=== PATIENT | female | born 1950 | race Caucasian/White ===

== ENCOUNTER 2020-10-10 11:26 | Inpatient (IN) ==
[2020-10-10] MEDS ORDERED: Nitroglycerin 0.4 MG TAB.SUBL SL PRN (13:07)
[2020-10-10] MEDS ORDERED: Cefuroxime PO 250 MG TABLET PO SCH (13:15)
[2020-10-10] MEDS: *HR* OxyCODONE/APAP 5/325 TABLET PO PRN ×2 (16:44→21:15)
[2020-10-10] MEDS: Cefuroxime PO 250 MG TABLET PO SCH (21:14)
[2020-10-10] MEDS: Mirtazapine 15 MG TABLET PO SCH (21:15)
[2020-10-10] MEDS: Gabapentin 300 MG CAPSULE PO SCH (21:15)
[2020-10-10] MEDS: ALPRAZolam 0.25 MG TABLET PO PRN (21:21)
[2020-10-11] MEDS: *HR* OxyCODONE/APAP 5/325 TABLET PO PRN ×3 (03:39→12:47)
[2020-10-11] MEDS ORDERED: Ketorolac 15 MG/ML VIAL IVP ONE (06:08)
[2020-10-11] MEDS: Aspirin Enteric Coated 325 MG Tablet PO SCH (08:06)
[2020-10-11] MEDS: ALPRAZolam 0.25 MG TABLET PO PRN ×2 (08:06→21:24)
[2020-10-11] MEDS: Cyanocobalamin (B-12) 1,000 MCG TABLET PO SCH (08:06)
[2020-10-11] MEDS: Cefuroxime PO 250 MG TABLET PO SCH ×2 (08:06→21:24)
[2020-10-11] MEDS: amLODIPine 5 MG TABLET PO SCH (08:07)
[2020-10-11] MEDS: Magnesium Oxide 400 MG TABLET PO SCH (08:07)
[2020-10-11] MEDS: Loratadine/Pseudophed (12 HR) 1 EACH TABLET PO SCH ×2 (08:17→21:24)
[2020-10-11] MEDS ORDERED: MAGNESIUM 250 MG PO SCH (09:00)
[2020-10-11 11:38] LABS: Basophils % 0.2 %; Eosinophils # 0.4 K/mcL (0.0-0.6); Eosinophils % 3.4 %; Hematocrit 25.6 % (35.3-44.9); Hemoglobin 8.3 g/dL (11.5-15.4); Immature Granulocytes % 1.2 % (0-4); Lymphocytes % 9.4 %; Mean Corpuscular HGB Conc 32.4 g/dL (31.6-35.5); Mean Corpuscular Hemoglobin 29.6 pg (28.0-33.3); Mean Corpuscular Volume 91.4 fL (83.0-100.0); Mean Platelet Volume 11.4 fL (9.4-12.4); Monocytes # 1.1 K/mcL (0.0-1.3); Monocytes % 9.8 %; Neutrophils # 8.2 K/mcL (1.6-8.9); Platelet Count 223 K/mcL (140-400); Red Cell Distribution Width 13.7 % (11.5-14.5); White Blood Count 10.7 K/mcL (4.3-11.1)
[2020-10-11 11:51] LABS: Calcium 8.4 mg/dL (8.6-10.3); Magnesium 1.7 mg/dL (1.6-2.6); Potassium 4.2 mEq/L (3.5-5.1)
[2020-10-11] MEDS: *HR* OxyCODONE/APAP 7.5/325 TABLET PO PRN (18:17)
[2020-10-11] MEDS: Mirtazapine 15 MG TABLET PO SCH (21:24)
[2020-10-11] MEDS: Gabapentin 300 MG CAPSULE PO SCH (21:24)
[2020-10-12] MEDS: *HR* OxyCODONE/APAP 7.5/325 TABLET PO PRN ×4 (00:32→19:39)
[2020-10-12] MEDS: Cefuroxime PO 250 MG TABLET PO SCH (10:18)
[2020-10-12] MEDS: amLODIPine 5 MG TABLET PO SCH (10:18)
[2020-10-12] MEDS: Cyanocobalamin (B-12) 1,000 MCG TABLET PO SCH (10:19)
[2020-10-12] MEDS: Magnesium Oxide 400 MG TABLET PO SCH (10:20)
[2020-10-12] MEDS: Aspirin Enteric Coated 325 MG Tablet PO SCH (10:20)
[2020-10-12] MEDS: Loratadine/Pseudophed (12 HR) 1 EACH TABLET PO SCH ×2 (10:20→19:40)
[2020-10-12] MEDS: Mirtazapine 15 MG TABLET PO SCH (19:39)
[2020-10-12] MEDS: ALPRAZolam 0.25 MG TABLET PO PRN (19:40)
[2020-10-12] MEDS: Gabapentin 300 MG CAPSULE PO SCH (19:40)
[2020-10-13] MEDS: *HR* OxyCODONE/APAP 7.5/325 TABLET PO PRN ×3 (03:34→17:20)
[2020-10-13] MEDS: Cyanocobalamin (B-12) 1,000 MCG TABLET PO SCH (10:09)
[2020-10-13] MEDS: Magnesium Oxide 400 MG TABLET PO SCH (10:10)
[2020-10-13] MEDS: Aspirin Enteric Coated 325 MG Tablet PO SCH (10:10)
[2020-10-13] MEDS: amLODIPine 5 MG TABLET PO SCH (10:10)
[2020-10-13] MEDS: Loratadine/Pseudophed (12 HR) 1 EACH TABLET PO SCH ×2 (10:10→20:23)
[2020-10-13] MEDS: Ergocalciferol (VIT D2) 50,000 UNIT (1.25MG) CAP PO SCH (10:11)
[2020-10-13] MEDS: Gabapentin 300 MG CAPSULE PO SCH (20:22)
[2020-10-13] MEDS: ALPRAZolam 0.25 MG TABLET PO PRN (20:22)
[2020-10-13] MEDS: Mirtazapine 15 MG TABLET PO SCH (20:23)
[2020-10-14] MEDS: *HR* OxyCODONE/APAP 7.5/325 TABLET PO PRN ×4 (01:08→20:47)
[2020-10-14] MEDS: Magnesium Oxide 400 MG TABLET PO SCH (08:00)
[2020-10-14] MEDS: Loratadine/Pseudophed (12 HR) 1 EACH TABLET PO SCH ×2 (08:01→20:48)
[2020-10-14] MEDS: Cyanocobalamin (B-12) 1,000 MCG TABLET PO SCH (08:01)
[2020-10-14] MEDS: Aspirin Enteric Coated 325 MG Tablet PO SCH (08:02)
[2020-10-14] MEDS: amLODIPine 5 MG TABLET PO SCH (08:02)
[2020-10-14] MEDS: ALPRAZolam 0.25 MG TABLET PO PRN (20:47)
[2020-10-14] MEDS: Mirtazapine 15 MG TABLET PO SCH (20:47)
[2020-10-14] MEDS: Gabapentin 300 MG CAPSULE PO SCH (20:47)
[2020-10-15] MEDS: *HR* OxyCODONE/APAP 7.5/325 TABLET PO PRN ×4 (03:16→22:11)
[2020-10-15] MEDS: Aspirin Enteric Coated 325 MG Tablet PO SCH (09:26)
[2020-10-15] MEDS: amLODIPine 5 MG TABLET PO SCH (09:26)
[2020-10-15] MEDS: Loratadine/Pseudophed (12 HR) 1 EACH TABLET PO SCH ×3 (09:26→21:00)
[2020-10-15] MEDS: Magnesium Oxide 400 MG TABLET PO SCH (09:26)
[2020-10-15] MEDS: Cyanocobalamin (B-12) 1,000 MCG TABLET PO SCH (09:27)
[2020-10-15 12:40] LABS: Basophils % 0.2 %; Eosinophils # 0.6 K/mcL (0.0-0.6); Eosinophils % 4.3 %; Hemoglobin 8.9 g/dL (11.5-15.4); Immature Granulocytes % 0.8 % (0-4); Lymphocytes # 0.8 K/mcL (0.6-4.6); Mean Corpuscular HGB Conc 31.8 g/dL (31.6-35.5); Mean Corpuscular Hemoglobin 29.4 pg (28.0-33.3); Mean Corpuscular Volume 92.4 fL (83.0-100.0); Mean Platelet Volume 10.5 fL (9.4-12.4); Monocytes # 0.8 K/mcL (0.0-1.3); Monocytes % 5.9 %; Neutrophils # 10.9 K/mcL (1.6-8.9); Platelet Count 363 K/mcL (140-400); Red Blood Count 3.03 M/mcL (3.82-4.97); Red Cell Distribution Width 13.8 % (11.5-14.5); Segmented Neutrophils % 82.8 %; White Blood Count 13.2 K/mcL (4.3-11.1)
[2020-10-15 12:58] LABS: Calcium 8.8 mg/dL (8.6-10.3); Potassium 4.6 mEq/L (3.5-5.1)
[2020-10-15] MEDS: Gabapentin 300 MG CAPSULE PO SCH (21:01)
[2020-10-15] MEDS: Mirtazapine 15 MG TABLET PO SCH (21:01)
[2020-10-16] MEDS: Magnesium Oxide 400 MG TABLET PO SCH (08:09)
[2020-10-16] MEDS: Cyanocobalamin (B-12) 1,000 MCG TABLET PO SCH (08:09)
[2020-10-16] MEDS: Loratadine/Pseudophed (12 HR) 1 EACH TABLET PO SCH ×2 (08:10→20:56)
[2020-10-16] MEDS: amLODIPine 5 MG TABLET PO SCH (08:10)
[2020-10-16] MEDS: Aspirin Enteric Coated 325 MG Tablet PO SCH (08:10)
[2020-10-16] MEDS: *HR* OxyCODONE/APAP 7.5/325 TABLET PO PRN ×3 (08:10→20:57)
[2020-10-16] MEDS: 0.9 % Sodium Chloride 1,000 ML IVC SCH ×2 (08:11→21:02)
[2020-10-16] MEDS: Mirtazapine 15 MG TABLET PO SCH (20:56)
[2020-10-16] MEDS: Gabapentin 300 MG CAPSULE PO SCH (20:56)
[2020-10-17] MEDS: *HR* OxyCODONE/APAP 7.5/325 TABLET PO PRN ×4 (02:51→21:29)
[2020-10-17 08:23] LABS: Calcium 8.7 mg/dL (8.6-10.3); Potassium 4.4 mEq/L (3.5-5.1)
[2020-10-17] MEDS: Aspirin Enteric Coated 325 MG Tablet PO SCH (09:41)
[2020-10-17] MEDS: Loratadine/Pseudophed (12 HR) 1 EACH TABLET PO SCH ×2 (09:41→21:29)
[2020-10-17] MEDS: Magnesium Oxide 400 MG TABLET PO SCH (09:41)
[2020-10-17] MEDS: Cyanocobalamin (B-12) 1,000 MCG TABLET PO SCH (09:42)
[2020-10-17] MEDS: ALPRAZolam 0.25 MG TABLET PO PRN (09:42)
[2020-10-17] MEDS: amLODIPine 5 MG TABLET PO SCH (09:42)
[2020-10-17] MEDS: Mirtazapine 15 MG TABLET PO SCH (21:28)
[2020-10-17] MEDS: Gabapentin 300 MG CAPSULE PO SCH (21:29)
[2020-10-18] MEDS: ALPRAZolam 0.25 MG TABLET PO PRN ×2 (00:28→21:56)
[2020-10-18] MEDS: Aspirin Enteric Coated 325 MG Tablet PO SCH (08:42)
[2020-10-18] MEDS: Cyanocobalamin (B-12) 1,000 MCG TABLET PO SCH (08:42)
[2020-10-18] MEDS: amLODIPine 5 MG TABLET PO SCH (08:42)
[2020-10-18] MEDS: *HR* OxyCODONE/APAP 7.5/325 TABLET PO PRN ×3 (08:42→20:51)
[2020-10-18] MEDS: Magnesium Oxide 400 MG TABLET PO SCH (08:42)
[2020-10-18] MEDS: Loratadine/Pseudophed (12 HR) 1 EACH TABLET PO SCH ×2 (08:42→20:50)
[2020-10-18] MEDS: Gabapentin 300 MG CAPSULE PO SCH (20:50)
[2020-10-18] MEDS: Mirtazapine 15 MG TABLET PO SCH (20:50)
[2020-10-19] MEDS: *HR* OxyCODONE/APAP 7.5/325 TABLET PO PRN ×4 (04:06→23:25)
[2020-10-19] MEDS: ALPRAZolam 0.25 MG TABLET PO PRN ×2 (09:41→23:25)
[2020-10-19] MEDS: Cyanocobalamin (B-12) 1,000 MCG TABLET PO SCH (09:42)
[2020-10-19] MEDS: amLODIPine 5 MG TABLET PO SCH (09:42)
[2020-10-19] MEDS: Loratadine/Pseudophed (12 HR) 1 EACH TABLET PO SCH ×2 (09:42→21:06)
[2020-10-19] MEDS: Aspirin Enteric Coated 325 MG Tablet PO SCH (09:42)
[2020-10-19] MEDS: Magnesium Oxide 400 MG TABLET PO SCH (09:42)
[2020-10-19] MEDS: Mirtazapine 15 MG TABLET PO SCH (21:06)
[2020-10-19] MEDS: Gabapentin 300 MG CAPSULE PO SCH (21:06)
[2020-10-20] MEDS: *HR* OxyCODONE/APAP 7.5/325 TABLET PO PRN ×3 (05:56→19:44)
[2020-10-20 07:39] LABS: Basophils % 0.4 %; Eosinophils # 0.5 K/mcL (0.0-0.6); Eosinophils % 6.3 %; Hematocrit 27.4 % (35.3-44.9); Hemoglobin 8.8 g/dL (11.5-15.4); Immature Granulocytes % 1.1 % (0-4); Lymphocytes # 0.9 K/mcL (0.6-4.6); Lymphocytes % 10.9 %; Mean Corpuscular HGB Conc 32.1 g/dL (31.6-35.5); Mean Corpuscular Hemoglobin 29.6 pg (28.0-33.3); Mean Corpuscular Volume 92.3 fL (83.0-100.0); Mean Platelet Volume 10.1 fL (9.4-12.4); Monocytes # 0.7 K/mcL (0.0-1.3); Monocytes % 9.2 %; Neutrophils # 5.7 K/mcL (1.6-8.9); Platelet Count 342 K/mcL (140-400); Red Blood Count 2.97 M/mcL (3.82-4.97); Red Cell Distribution Width 14.4 % (11.5-14.5); Segmented Neutrophils % 72.1 %; White Blood Count 7.8 K/mcL (4.3-11.1)
[2020-10-20 08:05] LABS: Calcium 8.4 mg/dL (8.6-10.3); Potassium 4.2 mEq/L (3.5-5.1)
[2020-10-20] MEDS: Aspirin Enteric Coated 325 MG Tablet PO SCH (09:15)
[2020-10-20] MEDS: Loratadine/Pseudophed (12 HR) 1 EACH TABLET PO SCH ×2 (09:15→20:11)
[2020-10-20] MEDS: Magnesium Oxide 400 MG TABLET PO SCH (09:15)
[2020-10-20] MEDS: ALPRAZolam 0.25 MG TABLET PO PRN (09:15)
[2020-10-20] MEDS: Cyanocobalamin (B-12) 1,000 MCG TABLET PO SCH (09:16)
[2020-10-20] MEDS: amLODIPine 5 MG TABLET PO SCH (09:16)
[2020-10-20] MEDS: Ergocalciferol (VIT D2) 50,000 UNIT (1.25MG) CAP PO SCH (09:23)
[2020-10-20] MEDS: Mirtazapine 15 MG TABLET PO SCH (20:11)
[2020-10-20] MEDS: Gabapentin 300 MG CAPSULE PO SCH (20:12)
[2020-10-21] MEDS: *HR* OxyCODONE/APAP 7.5/325 TABLET PO PRN ×4 (03:02→22:27)
[2020-10-21 07:14] LABS: Hematocrit 27.8 % (35.3-44.9); Hemoglobin 8.8 g/dL (11.5-15.4); Mean Corpuscular HGB Conc 31.7 g/dL (31.6-35.5); Mean Corpuscular Hemoglobin 29.2 pg (28.0-33.3); Mean Corpuscular Volume 92.4 fL (83.0-100.0); Platelet Count 352 K/mcL (140-400); Red Blood Count 3.01 M/mcL (3.82-4.97); Red Cell Distribution Width 14.3 % (11.5-14.5); White Blood Count 10.8 K/mcL (4.3-11.1)
[2020-10-21] MEDS: Cyanocobalamin (B-12) 1,000 MCG TABLET PO SCH (09:52)
[2020-10-21] MEDS: Loratadine/Pseudophed (12 HR) 1 EACH TABLET PO SCH ×2 (09:52→20:49)
[2020-10-21] MEDS: amLODIPine 5 MG TABLET PO SCH (09:53)
[2020-10-21] MEDS: Magnesium Oxide 400 MG TABLET PO SCH (09:53)
[2020-10-21] MEDS: Aspirin Enteric Coated 325 MG Tablet PO SCH (09:53)
[2020-10-21] MEDS: Gabapentin 300 MG CAPSULE PO SCH (20:49)
[2020-10-21] MEDS: Mirtazapine 15 MG TABLET PO SCH (20:50)
[2020-10-21] MEDS: ALPRAZolam 0.25 MG TABLET PO PRN (22:27)
[2020-10-22] MEDS: *HR* OxyCODONE/APAP 7.5/325 TABLET PO PRN ×4 (04:19→22:28)
[2020-10-22] MEDS: Loratadine/Pseudophed (12 HR) 1 EACH TABLET PO SCH ×2 (07:43→20:52)
[2020-10-22] MEDS: Aspirin Enteric Coated 325 MG Tablet PO SCH (07:44)
[2020-10-22] MEDS: amLODIPine 5 MG TABLET PO SCH (07:44)
[2020-10-22] MEDS: Magnesium Oxide 400 MG TABLET PO SCH (07:44)
[2020-10-22] MEDS: Cyanocobalamin (B-12) 1,000 MCG TABLET PO SCH (07:45)
[2020-10-22] MEDS: Mirtazapine 15 MG TABLET PO SCH (20:52)
[2020-10-22] MEDS: ALPRAZolam 0.25 MG TABLET PO PRN (20:52)
[2020-10-22] MEDS: Gabapentin 300 MG CAPSULE PO SCH (20:53)
[2020-10-23] MEDS: *HR* OxyCODONE/APAP 7.5/325 TABLET PO PRN (05:14)
[2020-10-23] MEDS: ALPRAZolam 0.25 MG TABLET PO PRN ×2 (07:40→20:14)
[2020-10-23] MEDS: Aspirin Enteric Coated 325 MG Tablet PO SCH (07:40)
[2020-10-23] MEDS: Magnesium Oxide 400 MG TABLET PO SCH (07:41)
[2020-10-23] MEDS: amLODIPine 5 MG TABLET PO SCH (07:41)
[2020-10-23] MEDS: Cyanocobalamin (B-12) 1,000 MCG TABLET PO SCH (07:41)
[2020-10-23] MEDS: Loratadine/Pseudophed (12 HR) 1 EACH TABLET PO SCH ×2 (07:41→20:15)
[2020-10-23] MEDS: *HR* OxyCODONE Immed Rel 5 MG TABLET PO PRN ×2 (13:51→20:14)
[2020-10-23] MEDS: Acetaminophen 325 MG TABLET PO SCH ×2 (13:52→13:53)
[2020-10-23] MEDS: Mirtazapine 15 MG TABLET PO SCH (20:14)
[2020-10-23] MEDS: Gabapentin 300 MG CAPSULE PO SCH (20:15)
[2020-10-24] MEDS: Acetaminophen 325 MG TABLET PO SCH ×4 (01:00→23:37)
[2020-10-24] MEDS: *HR* OxyCODONE Immed Rel 5 MG TABLET PO PRN (04:54)
[2020-10-24] MEDS: ALPRAZolam 0.25 MG TABLET PO PRN (09:21)
[2020-10-24] MEDS: Cyanocobalamin (B-12) 1,000 MCG TABLET PO SCH (09:22)
[2020-10-24] MEDS: Aspirin Enteric Coated 325 MG Tablet PO SCH (09:22)
[2020-10-24] MEDS: Magnesium Oxide 400 MG TABLET PO SCH (09:23)
[2020-10-24] MEDS: amLODIPine 5 MG TABLET PO SCH (09:23)
[2020-10-24] MEDS: Loratadine/Pseudophed (12 HR) 1 EACH TABLET PO SCH ×2 (09:23→21:02)
[2020-10-24] MEDS: *HR* HYDROcodone/Acet 5/325 mg TABLET PO PRN ×2 (11:33→18:02)
[2020-10-24] MEDS: Mirtazapine 15 MG TABLET PO SCH (21:02)
[2020-10-24] MEDS: Gabapentin 300 MG CAPSULE PO SCH (21:03)
[2020-10-25] MEDS: *HR* HYDROcodone/Acet 5/325 mg TABLET PO PRN ×4 (05:34→23:55)
[2020-10-25] MEDS: Magnesium Oxide 400 MG TABLET PO SCH (10:04)
[2020-10-25] MEDS: Cyanocobalamin (B-12) 1,000 MCG TABLET PO SCH (10:04)
[2020-10-25] MEDS: Acetaminophen 325 MG TABLET PO SCH ×3 (10:04→23:56)
[2020-10-25] MEDS: amLODIPine 5 MG TABLET PO SCH (10:04)
[2020-10-25] MEDS: Aspirin Enteric Coated 325 MG Tablet PO SCH (10:05)
[2020-10-25] MEDS: Loratadine/Pseudophed (12 HR) 1 EACH TABLET PO SCH ×2 (10:05→21:01)
[2020-10-25] MEDS: Gabapentin 300 MG CAPSULE PO SCH (21:01)
[2020-10-25] MEDS: Mirtazapine 15 MG TABLET PO SCH (21:01)
[2020-10-26] MEDS: Acetaminophen 325 MG TABLET PO SCH ×3 (06:21→23:45)
[2020-10-26] MEDS: Cyanocobalamin (B-12) 1,000 MCG TABLET PO SCH (08:47)
[2020-10-26] MEDS: Loratadine/Pseudophed (12 HR) 1 EACH TABLET PO SCH ×2 (08:48→21:15)
[2020-10-26] MEDS: *HR* HYDROcodone/Acet 5/325 mg TABLET PO PRN ×3 (08:48→22:01)
[2020-10-26] MEDS: Magnesium Oxide 400 MG TABLET PO SCH (08:48)
[2020-10-26] MEDS: amLODIPine 5 MG TABLET PO SCH (08:49)
[2020-10-26] MEDS: Aspirin Enteric Coated 325 MG Tablet PO SCH (08:49)
[2020-10-26] MEDS: Mirtazapine 15 MG TABLET PO SCH (21:14)
[2020-10-26] MEDS: Gabapentin 300 MG CAPSULE PO SCH (21:16)
[2020-10-27] MEDS: *HR* HYDROcodone/Acet 5/325 mg TABLET PO PRN ×4 (03:59→21:58)
[2020-10-27] MEDS: Aspirin Enteric Coated 325 MG Tablet PO SCH (09:53)
[2020-10-27] MEDS: Cyanocobalamin (B-12) 1,000 MCG TABLET PO SCH (09:54)
[2020-10-27] MEDS: Acetaminophen 325 MG TABLET PO SCH ×2 (09:54→16:02)
[2020-10-27] MEDS: Loratadine/Pseudophed (12 HR) 1 EACH TABLET PO SCH ×2 (09:55→19:56)
[2020-10-27] MEDS: amLODIPine 5 MG TABLET PO SCH (09:55)
[2020-10-27] MEDS: Ergocalciferol (VIT D2) 50,000 UNIT (1.25MG) CAP PO SCH (09:55)
[2020-10-27] MEDS: Magnesium Oxide 400 MG TABLET PO SCH (09:55)
[2020-10-27] MEDS: Mirtazapine 15 MG TABLET PO SCH (19:55)
[2020-10-27] MEDS: Gabapentin 300 MG CAPSULE PO SCH (19:56)
[2020-10-28] MEDS: Acetaminophen 325 MG TABLET PO SCH ×4 (00:26→23:23)
[2020-10-28] MEDS: *HR* HYDROcodone/Acet 5/325 mg TABLET PO PRN ×3 (05:46→18:14)
[2020-10-28] MEDS: Aspirin Enteric Coated 325 MG Tablet PO SCH (09:18)
[2020-10-28] MEDS: Magnesium Oxide 400 MG TABLET PO SCH (09:18)
[2020-10-28] MEDS: amLODIPine 5 MG TABLET PO SCH (09:18)
[2020-10-28] MEDS: Loratadine/Pseudophed (12 HR) 1 EACH TABLET PO SCH ×2 (09:19→20:02)
[2020-10-28] MEDS: Cyanocobalamin (B-12) 1,000 MCG TABLET PO SCH (09:19)
[2020-10-28] MEDS: Gabapentin 300 MG CAPSULE PO SCH (20:02)
[2020-10-28] MEDS: Mirtazapine 15 MG TABLET PO SCH (20:02)
[2020-10-29] MEDS: *HR* HYDROcodone/Acet 5/325 mg TABLET PO PRN ×3 (05:24→18:43)
[2020-10-29] MEDS: Acetaminophen 325 MG TABLET PO SCH ×3 (09:50→23:29)
[2020-10-29] MEDS: Loratadine/Pseudophed (12 HR) 1 EACH TABLET PO SCH ×2 (09:50→21:20)
[2020-10-29] MEDS: Cyanocobalamin (B-12) 1,000 MCG TABLET PO SCH (09:50)
[2020-10-29] MEDS: Magnesium Oxide 400 MG TABLET PO SCH (09:51)
[2020-10-29] MEDS: amLODIPine 5 MG TABLET PO SCH (09:51)
[2020-10-29] MEDS: Aspirin Enteric Coated 325 MG Tablet PO SCH (09:51)
[2020-10-29] MEDS: Gabapentin 300 MG CAPSULE PO SCH (21:20)
[2020-10-29] MEDS: ALPRAZolam 0.25 MG TABLET PO PRN (21:20)
[2020-10-29] MEDS: Mirtazapine 15 MG TABLET PO SCH (21:20)
[2020-10-30] MEDS: Aspirin Enteric Coated 325 MG Tablet PO SCH (07:45)
[2020-10-30] MEDS: ALPRAZolam 0.25 MG TABLET PO PRN (07:45)
[2020-10-30] MEDS: amLODIPine 5 MG TABLET PO SCH (07:46)
[2020-10-30] MEDS: Cyanocobalamin (B-12) 1,000 MCG TABLET PO SCH (07:46)
[2020-10-30] MEDS: Magnesium Oxide 400 MG TABLET PO SCH (07:46)
[2020-10-30] MEDS: *HR* HYDROcodone/Acet 5/325 mg TABLET PO PRN ×3 (07:47→20:19)
[2020-10-30] MEDS: Loratadine/Pseudophed (12 HR) 1 EACH TABLET PO SCH ×2 (07:47→20:18)
[2020-10-30] MEDS: Acetaminophen 325 MG TABLET PO SCH ×3 (07:48→23:50)
[2020-10-30] MEDS: Gabapentin 300 MG CAPSULE PO SCH (20:18)
[2020-10-30] MEDS: Mirtazapine 15 MG TABLET PO SCH (20:19)
[2020-10-31] MEDS: *HR* HYDROcodone/Acet 5/325 mg TABLET PO PRN ×2 (04:08→12:24)
[2020-10-31 07:06] VITALS: BP 113/77
[2020-10-31] MEDS: Loratadine/Pseudophed (12 HR) 1 EACH TABLET PO SCH (08:34)
[2020-10-31] MEDS: Magnesium Oxide 400 MG TABLET PO SCH (08:34)
[2020-10-31] MEDS: Acetaminophen 325 MG TABLET PO SCH ×2 (08:34→17:11)
[2020-10-31] MEDS: Cyanocobalamin (B-12) 1,000 MCG TABLET PO SCH (08:34)
[2020-10-31] MEDS: amLODIPine 5 MG TABLET PO SCH (08:34)
[2020-10-31] MEDS: Aspirin Enteric Coated 325 MG Tablet PO SCH (08:34)
== END 2020-10-31 17:13 | disposition home health service (06) | DRG 560 ==
LOC: INPPIK 16:19
PROVIDERS: ADMIT Family Medicine; ATTEND Family Medicine

== ENCOUNTER 2020-12-24 20:54 | Inpatient (IN) ==
[2020-12-24] MEDS ORDERED: Nitroglycerin 0.4 MG TAB.SUBL SL PRN (22:22)
[2020-12-24] MEDS: *HR* OxyCODONE/APAP 5/325 TABLET PO PRN (23:47)
[2020-12-24] MEDS: Metoprolol 100 MG TABLET PO SCH (23:47)
[2020-12-24] MEDS: Mirtazapine 15 MG TABLET PO SCH (23:48)
[2020-12-24] MEDS: Gabapentin 300 MG CAPSULE PO SCH (23:48)
[2020-12-24] MEDS: Lactobacillus 1 EACH CAP.SPRINK PO SCH (23:56)
[2020-12-24] MEDS: Doxycycline 100 MG CAPSULE PO SCH (23:56)
[2020-12-25] MEDS ORDERED: Ondansetron ODT 4 MG TAB.RAPDIS SL ONE (02:27)
[2020-12-25 09:20] LABS: Basophils # 0.1 K/mcL (0.0-0.2); Basophils % 0.4 %; Eosinophils # 0.4 K/mcL (0.0-0.6); Eosinophils % 2.4 %; Hematocrit 25.7 % (35.3-44.9); Hemoglobin 8.4 g/dL (11.5-15.4); Immature Granulocytes % 3.4 % (0-4); Lymphocytes # 1.1 K/mcL (0.6-4.6); Lymphocytes % 6.7 %; Mean Corpuscular HGB Conc 32.7 g/dL (31.6-35.5); Mean Corpuscular Hemoglobin 28.8 pg (28.0-33.3); Mean Platelet Volume 11.4 fL (9.4-12.4); Monocytes # 1.2 K/mcL (0.0-1.3); Monocytes % 7.6 %; Neutrophils # 12.7 K/mcL (1.6-8.9); Platelet Count 236 K/mcL (140-400); Red Blood Count 2.92 M/mcL (3.82-4.97); Red Cell Distribution Width 15.9 % (11.5-14.5); Segmented Neutrophils % 79.5 %
[2020-12-25] MEDS: Magnesium Oxide 400 MG TABLET PO SCH (09:23)
[2020-12-25] MEDS: Sennosides/Docusate Sodium TABLET PO SCH (09:23)
[2020-12-25] MEDS: Doxycycline 100 MG CAPSULE PO SCH ×2 (09:23→19:59)
[2020-12-25] MEDS: Multivit/Ca/Min/Fe/FA 1 TAB TABLET PO SCH (09:23)
[2020-12-25] MEDS: Lactobacillus 1 EACH CAP.SPRINK PO SCH ×2 (09:23→19:59)
[2020-12-25] MEDS: Metoprolol 100 MG TABLET PO SCH ×3 (09:24→20:00)
[2020-12-25] MEDS: Ascorbic Acid 500 MG TABLET PO SCH ×2 (09:24→16:31)
[2020-12-25] MEDS: Cyanocobalamin (B-12) 1,000 MCG TABLET PO SCH (09:24)
[2020-12-25] MEDS: *HR* OxyCODONE Immed Rel 5 MG TABLET PO PRN ×2 (09:30→16:31)
[2020-12-25 09:39] LABS: Calcium 8.2 mg/dL (8.6-10.3); Potassium 4.6 mEq/L (3.5-5.1)
[2020-12-25] MEDS ORDERED: Albuterol 2.5 MG/3 ML NEBULIZER IH PRN (09:46)
[2020-12-25] MEDS: *HR* OxyCODONE/APAP 5/325 TABLET PO PRN ×2 (11:31→20:00)
[2020-12-25] MEDS ORDERED: Ipratropium/Albuterol Neb 3 ML IH PRN (15:10)
[2020-12-25] MEDS: *HR* Rivaroxaban 10 MG TABLET PO SCH (16:31)
[2020-12-25] MEDS: Mirtazapine 15 MG TABLET PO SCH (19:59)
[2020-12-25] MEDS: ALPRAZolam 0.25 MG TABLET PO PRN (19:59)
[2020-12-25] MEDS: Gabapentin 300 MG CAPSULE PO SCH (20:00)
[2020-12-25] MEDS: Famotidine 20 MG TABLET PO SCH (20:00)
[2020-12-26] MEDS: *HR* OxyCODONE/APAP 5/325 TABLET PO PRN ×3 (06:07→22:51)
[2020-12-26] MEDS: Lactobacillus 1 EACH CAP.SPRINK PO SCH ×2 (07:38→19:59)
[2020-12-26] MEDS: Famotidine 20 MG TABLET PO SCH ×2 (07:38→20:00)
[2020-12-26] MEDS: Magnesium Oxide 400 MG TABLET PO SCH (07:38)
[2020-12-26] MEDS: Ascorbic Acid 500 MG TABLET PO SCH ×2 (07:38→16:33)
[2020-12-26] MEDS: Sennosides/Docusate Sodium TABLET PO SCH (07:39)
[2020-12-26] MEDS: Doxycycline 100 MG CAPSULE PO SCH ×2 (07:39→19:59)
[2020-12-26] MEDS: Cyanocobalamin (B-12) 1,000 MCG TABLET PO SCH (07:39)
[2020-12-26] MEDS: *HR* OxyCODONE Immed Rel 5 MG TABLET PO PRN ×3 (07:39→19:59)
[2020-12-26] MEDS: Multivit/Ca/Min/Fe/FA 1 TAB TABLET PO SCH (07:39)
[2020-12-26] MEDS: Metoprolol 100 MG TABLET PO SCH ×3 (07:39→19:58)
[2020-12-26] MEDS: Ondansetron ODT 4 MG TAB.RAPDIS SL PRN (09:40)
[2020-12-26] MEDS: *HR* Rivaroxaban 10 MG TABLET PO SCH (16:33)
[2020-12-26] MEDS: Mirtazapine 15 MG TABLET PO SCH (19:59)
[2020-12-26] MEDS: Gabapentin 300 MG CAPSULE PO SCH (19:59)
[2020-12-27] MEDS: *HR* OxyCODONE Immed Rel 5 MG TABLET PO PRN ×2 (02:46→08:52)
[2020-12-27] MEDS: *HR* OxyCODONE/APAP 5/325 TABLET PO PRN ×3 (05:35→21:19)
[2020-12-27] MEDS: Ascorbic Acid 500 MG TABLET PO SCH ×2 (08:50→16:03)
[2020-12-27] MEDS: Sennosides/Docusate Sodium TABLET PO SCH (08:50)
[2020-12-27] MEDS: Doxycycline 100 MG CAPSULE PO SCH ×2 (08:50→21:19)
[2020-12-27] MEDS: ALPRAZolam 0.25 MG TABLET PO PRN ×2 (08:51→21:19)
[2020-12-27] MEDS: Magnesium Oxide 400 MG TABLET PO SCH (08:51)
[2020-12-27] MEDS: Metoprolol 100 MG TABLET PO SCH ×3 (08:51→21:20)
[2020-12-27] MEDS: Cyanocobalamin (B-12) 1,000 MCG TABLET PO SCH (08:52)
[2020-12-27] MEDS: Lactobacillus 1 EACH CAP.SPRINK PO SCH ×2 (08:52→21:19)
[2020-12-27] MEDS: Famotidine 20 MG TABLET PO SCH ×2 (08:52→21:19)
[2020-12-27] MEDS: Multivit/Ca/Min/Fe/FA 1 TAB TABLET PO SCH (08:52)
[2020-12-27] MEDS: Ondansetron ODT 4 MG TAB.RAPDIS SL PRN ×2 (08:55→21:20)
[2020-12-27] MEDS: *HR* Rivaroxaban 10 MG TABLET PO SCH (16:03)
[2020-12-27] MEDS: Gabapentin 300 MG CAPSULE PO SCH (21:19)
[2020-12-27] MEDS: Mirtazapine 15 MG TABLET PO SCH (21:19)
[2020-12-28] MEDS: *HR* OxyCODONE/APAP 5/325 TABLET PO PRN ×3 (05:59→20:21)
[2020-12-28] MEDS: Ascorbic Acid 500 MG TABLET PO SCH ×2 (07:46→17:06)
[2020-12-28] MEDS: Lactobacillus 1 EACH CAP.SPRINK PO SCH ×2 (07:46→20:20)
[2020-12-28] MEDS: Sennosides/Docusate Sodium TABLET PO SCH (07:46)
[2020-12-28] MEDS: Metoprolol 100 MG TABLET PO SCH ×3 (07:46→20:20)
[2020-12-28] MEDS: Famotidine 20 MG TABLET PO SCH ×2 (07:47→20:21)
[2020-12-28] MEDS: Doxycycline 100 MG CAPSULE PO SCH (07:47)
[2020-12-28] MEDS: Magnesium Oxide 400 MG TABLET PO SCH (07:47)
[2020-12-28] MEDS: Multivit/Ca/Min/Fe/FA 1 TAB TABLET PO SCH (07:47)
[2020-12-28] MEDS: Cyanocobalamin (B-12) 1,000 MCG TABLET PO SCH (07:48)
[2020-12-28] MEDS: Ondansetron ODT 4 MG TAB.RAPDIS SL PRN ×2 (07:52→20:21)
[2020-12-28] MEDS: *HR* Rivaroxaban 10 MG TABLET PO SCH (17:05)
[2020-12-28] MEDS: *HR* OxyCODONE Immed Rel 5 MG TABLET PO PRN (17:11)
[2020-12-28] MEDS: Gabapentin 300 MG CAPSULE PO SCH (20:20)
[2020-12-28] MEDS: ALPRAZolam 0.25 MG TABLET PO PRN (20:21)
[2020-12-28] MEDS: Mirtazapine 15 MG TABLET PO SCH (20:21)
[2020-12-29] MEDS: *HR* OxyCODONE/APAP 5/325 TABLET PO PRN ×3 (05:31→18:28)
[2020-12-29 07:25] LABS: Basophils % 0.4 %; Eosinophils # 0.6 K/mcL (0.0-0.6); Hematocrit 21.8 % (35.3-44.9); Hemoglobin 6.9 g/dL (11.5-15.4); Immature Granulocytes % 1.9 % (0-4); Lymphocytes # 0.9 K/mcL (0.6-4.6); Lymphocytes % 10.2 %; Mean Corpuscular HGB Conc 31.7 g/dL (31.6-35.5); Mean Corpuscular Hemoglobin 28.2 pg (28.0-33.3); Mean Platelet Volume 10.9 fL (9.4-12.4); Neutrophils # 6.4 K/mcL (1.6-8.9); Platelet Count 335 K/mcL (140-400); Red Blood Count 2.45 M/mcL (3.82-4.97); Red Cell Distribution Width 16.2 % (11.5-14.5); Segmented Neutrophils % 69.5 %; White Blood Count 9.2 K/mcL (4.3-11.1)
[2020-12-29 07:54] LABS: Calcium 7.9 mg/dL (8.6-10.3); Potassium 4.2 mEq/L (3.5-5.1)
[2020-12-29] MEDS ORDERED: 0.9 % Sodium Chloride 250 ML IVC SCH (08:30)
[2020-12-29] MEDS: Ondansetron ODT 4 MG TAB.RAPDIS SL PRN ×2 (09:29→22:06)
[2020-12-29] MEDS: Multivit/Ca/Min/Fe/FA 1 TAB TABLET PO SCH (09:29)
[2020-12-29] MEDS: Sennosides/Docusate Sodium TABLET PO SCH (09:29)
[2020-12-29] MEDS: Cyanocobalamin (B-12) 1,000 MCG TABLET PO SCH (09:29)
[2020-12-29] MEDS: Ascorbic Acid 500 MG TABLET PO SCH ×2 (09:30→15:54)
[2020-12-29] MEDS: *HR* OxyCODONE Immed Rel 5 MG TABLET PO PRN ×3 (09:30→22:05)
[2020-12-29] MEDS: Famotidine 20 MG TABLET PO SCH ×2 (09:30→22:06)
[2020-12-29] MEDS: Lactobacillus 1 EACH CAP.SPRINK PO SCH ×2 (09:30→22:06)
[2020-12-29] MEDS: Magnesium Oxide 400 MG TABLET PO SCH (09:30)
[2020-12-29] MEDS: Metoprolol 100 MG TABLET PO SCH ×3 (09:30→22:06)
[2020-12-29] MEDS: Ergocalciferol (VIT D2) 50,000 UNIT (1.25MG) CAP PO SCH (09:45)
[2020-12-29] MEDS ORDERED: 0.9 % Sodium Chloride 250 ML ONE (12:12)
[2020-12-29 17:28] LABS: Hemoglobin 8.7 g/dL (11.5-15.4)
[2020-12-29] MEDS: ALPRAZolam 0.25 MG TABLET PO PRN (22:05)
[2020-12-29] MEDS: Mirtazapine 15 MG TABLET PO SCH (22:05)
[2020-12-29] MEDS: Gabapentin 300 MG CAPSULE PO SCH (22:06)
[2020-12-30] MEDS: *HR* OxyCODONE Immed Rel 5 MG TABLET PO PRN ×3 (06:20→19:44)
[2020-12-30] MEDS: Lactobacillus 1 EACH CAP.SPRINK PO SCH ×2 (08:55→19:42)
[2020-12-30] MEDS: Metoprolol 100 MG TABLET PO SCH ×3 (08:55→19:42)
[2020-12-30] MEDS: Magnesium Oxide 400 MG TABLET PO SCH (08:55)
[2020-12-30] MEDS: Ascorbic Acid 500 MG TABLET PO SCH ×2 (08:55→15:33)
[2020-12-30] MEDS: Cyanocobalamin (B-12) 1,000 MCG TABLET PO SCH (08:56)
[2020-12-30] MEDS: Multivit/Ca/Min/Fe/FA 1 TAB TABLET PO SCH (08:56)
[2020-12-30] MEDS: Sennosides/Docusate Sodium TABLET PO SCH (08:56)
[2020-12-30] MEDS: Famotidine 20 MG TABLET PO SCH ×2 (08:57→19:43)
[2020-12-30] MEDS: *HR* OxyCODONE/APAP 5/325 TABLET PO PRN ×2 (09:04→15:33)
[2020-12-30] MEDS: Ondansetron ODT 4 MG TAB.RAPDIS SL PRN (09:04)
[2020-12-30] MEDS: Mirtazapine 15 MG TABLET PO SCH (19:43)
[2020-12-30] MEDS: Gabapentin 300 MG CAPSULE PO SCH (19:43)
[2020-12-31] MEDS: *HR* OxyCODONE Immed Rel 5 MG TABLET PO PRN ×3 (06:08→19:23)
[2020-12-31] MEDS ORDERED: cloNIDine HCL 0.1 MG TABLET PO ONE (07:57)
[2020-12-31] MEDS: Ondansetron ODT 4 MG TAB.RAPDIS SL PRN (08:18)
[2020-12-31] MEDS: *HR* OxyCODONE/APAP 5/325 TABLET PO PRN ×3 (08:18→20:33)
[2020-12-31] MEDS: Sennosides/Docusate Sodium TABLET PO SCH (08:18)
[2020-12-31] MEDS: Lactobacillus 1 EACH CAP.SPRINK PO SCH ×2 (08:18→19:23)
[2020-12-31] MEDS: Multivit/Ca/Min/Fe/FA 1 TAB TABLET PO SCH (08:18)
[2020-12-31] MEDS: Metoprolol 100 MG TABLET PO SCH ×3 (08:19→19:23)
[2020-12-31] MEDS: Famotidine 20 MG TABLET PO SCH ×2 (08:19→19:23)
[2020-12-31] MEDS: Magnesium Oxide 400 MG TABLET PO SCH (08:19)
[2020-12-31] MEDS: Ascorbic Acid 500 MG TABLET PO SCH ×2 (08:19→17:18)
[2020-12-31] MEDS: Cyanocobalamin (B-12) 1,000 MCG TABLET PO SCH (08:20)
[2020-12-31] MEDS: *HR* Rivaroxaban 10 MG TABLET PO SCH (17:18)
[2020-12-31] MEDS: Gabapentin 300 MG CAPSULE PO SCH (19:23)
[2020-12-31] MEDS: Mirtazapine 15 MG TABLET PO SCH (19:23)
[2020-12-31] MEDS: cloNIDine HCL 0.1 MG TABLET PO PRN (20:33)
[2021-01-01] MEDS: *HR* OxyCODONE Immed Rel 5 MG TABLET PO PRN ×3 (01:20→14:45)
[2021-01-01] MEDS: *HR* OxyCODONE/APAP 5/325 TABLET PO PRN ×3 (04:24→18:55)
[2021-01-01] MEDS: Multivit/Ca/Min/Fe/FA 1 TAB TABLET PO SCH (08:02)
[2021-01-01] MEDS: Ondansetron ODT 4 MG TAB.RAPDIS SL PRN (08:02)
[2021-01-01] MEDS: Famotidine 20 MG TABLET PO SCH ×2 (08:02→21:53)
[2021-01-01] MEDS: Lactobacillus 1 EACH CAP.SPRINK PO SCH ×2 (08:02→21:52)
[2021-01-01] MEDS: Sennosides/Docusate Sodium TABLET PO SCH (08:03)
[2021-01-01] MEDS: cloNIDine HCL 0.1 MG TABLET PO PRN (08:03)
[2021-01-01] MEDS: Metoprolol 100 MG TABLET PO SCH ×3 (08:03→21:52)
[2021-01-01] MEDS: Ascorbic Acid 500 MG TABLET PO SCH ×2 (08:03→18:55)
[2021-01-01] MEDS: Magnesium Oxide 400 MG TABLET PO SCH (08:03)
[2021-01-01] MEDS: Cyanocobalamin (B-12) 1,000 MCG TABLET PO SCH (08:04)
[2021-01-01] MEDS: *HR* Rivaroxaban 10 MG TABLET PO SCH (18:55)
[2021-01-01] MEDS: Gabapentin 300 MG CAPSULE PO SCH (21:52)
[2021-01-01] MEDS: Mirtazapine 15 MG TABLET PO SCH (21:53)
[2021-01-02] MEDS: *HR* OxyCODONE/APAP 5/325 TABLET PO PRN ×3 (05:35→23:55)
[2021-01-02 07:25] LABS: Basophils # 0.1 K/mcL (0.0-0.2); Basophils % 0.6 %; Eosinophils # 0.5 K/mcL (0.0-0.6); Eosinophils % 6.3 %; Hematocrit 26.6 % (35.3-44.9); Hemoglobin 8.4 g/dL (11.5-15.4); Immature Granulocytes % 1.2 % (0-4); Lymphocytes % 11.6 %; Mean Corpuscular HGB Conc 31.6 g/dL (31.6-35.5); Mean Corpuscular Hemoglobin 28.5 pg (28.0-33.3); Mean Corpuscular Volume 90.2 fL (83.0-100.0); Monocytes # 0.9 K/mcL (0.0-1.3); Monocytes % 10.3 %; Neutrophils # 5.8 K/mcL (1.6-8.9); Platelet Count 357 K/mcL (140-400); Red Blood Count 2.95 M/mcL (3.82-4.97); Red Cell Distribution Width 16.3 % (11.5-14.5); White Blood Count 8.3 K/mcL (4.3-11.1)
[2021-01-02 07:52] LABS: Calcium 8.2 mg/dL (8.6-10.3); Potassium 3.9 mEq/L (3.5-5.1)
[2021-01-02] MEDS: *HR* OxyCODONE Immed Rel 5 MG TABLET PO PRN ×2 (09:51→21:28)
[2021-01-02] MEDS: Magnesium Oxide 400 MG TABLET PO SCH (09:52)
[2021-01-02] MEDS: ALPRAZolam 0.25 MG TABLET PO PRN (09:52)
[2021-01-02] MEDS: Lactobacillus 1 EACH CAP.SPRINK PO SCH ×2 (09:52→21:12)
[2021-01-02] MEDS: Multivit/Ca/Min/Fe/FA 1 TAB TABLET PO SCH (09:52)
[2021-01-02] MEDS: Sennosides/Docusate Sodium TABLET PO SCH (09:52)
[2021-01-02] MEDS: Ascorbic Acid 500 MG TABLET PO SCH ×2 (09:52→17:37)
[2021-01-02] MEDS: Famotidine 20 MG TABLET PO SCH ×2 (09:52→21:12)
[2021-01-02] MEDS: Cyanocobalamin (B-12) 1,000 MCG TABLET PO SCH (09:53)
[2021-01-02] MEDS: Metoprolol 100 MG TABLET PO SCH ×3 (09:53→21:12)
[2021-01-02] MEDS: *HR* Rivaroxaban 10 MG TABLET PO SCH (17:37)
[2021-01-02] MEDS: Gabapentin 300 MG CAPSULE PO SCH (21:11)
[2021-01-02] MEDS: Mirtazapine 15 MG TABLET PO SCH (21:12)
[2021-01-02] MEDS: cloNIDine HCL 0.1 MG TABLET PO PRN (23:55)
[2021-01-03] MEDS: Acetaminophen 325 MG TABLET PO PRN (03:21)
[2021-01-03] MEDS: cloNIDine HCL 0.1 MG TABLET PO PRN ×3 (06:58→21:58)
[2021-01-03] MEDS: Lactobacillus 1 EACH CAP.SPRINK PO SCH ×2 (08:21→21:53)
[2021-01-03] MEDS: Sennosides/Docusate Sodium TABLET PO SCH (08:21)
[2021-01-03] MEDS: Metoprolol 100 MG TABLET PO SCH ×3 (08:22→21:54)
[2021-01-03] MEDS: *HR* OxyCODONE Immed Rel 5 MG TABLET PO PRN ×2 (08:22→18:24)
[2021-01-03] MEDS: Ascorbic Acid 500 MG TABLET PO SCH ×2 (08:22→16:06)
[2021-01-03] MEDS: Multivit/Ca/Min/Fe/FA 1 TAB TABLET PO SCH (08:22)
[2021-01-03] MEDS: Magnesium Oxide 400 MG TABLET PO SCH (08:22)
[2021-01-03] MEDS: Famotidine 20 MG TABLET PO SCH ×2 (08:23→21:54)
[2021-01-03] MEDS: Cyanocobalamin (B-12) 1,000 MCG TABLET PO SCH (08:24)
[2021-01-03] MEDS: ALPRAZolam 0.25 MG TABLET PO PRN ×2 (09:45→21:53)
[2021-01-03] MEDS: *HR* OxyCODONE/APAP 5/325 TABLET PO PRN ×2 (13:36→21:53)
[2021-01-03] MEDS: *HR* Rivaroxaban 10 MG TABLET PO SCH (16:06)
[2021-01-03 21:50] LABS: Bilirubin,Urine Negative (Negative); Blood,Urine Trace-intact (Negative); Clarity,Urine Clear (Clear); Color,Urine Yellow (Yellow); Glucose,Urine (UA) Normal (Normal); Ketones,Urine Negative (Negative); Leukocyte Esterase,Urine Negative (Negative); Nitrite,Urine Negative (Negative); Protein,Urine Negative (Neg-Trace); Specific Gravity,Urine 1.015 (1.010-1.025); Urobilinogen,Urine Normal (Normal)
[2021-01-03] MEDS: Gabapentin 300 MG CAPSULE PO SCH (21:54)
[2021-01-03] MEDS: Mirtazapine 15 MG TABLET PO SCH (21:54)
[2021-01-03 21:58] LABS: Bacteria,Urine Moderate per hpf (None-Few); Squamous Epithelial Cell,Urine Moderate per hpf (None-Few)
[2021-01-04] MEDS: *HR* OxyCODONE/APAP 5/325 TABLET PO PRN ×3 (05:55→22:03)
[2021-01-04] MEDS: Magnesium Oxide 400 MG TABLET PO SCH (08:24)
[2021-01-04] MEDS: Cyanocobalamin (B-12) 1,000 MCG TABLET PO SCH (08:25)
[2021-01-04] MEDS: Lactobacillus 1 EACH CAP.SPRINK PO SCH ×2 (08:25→20:55)
[2021-01-04] MEDS: Famotidine 20 MG TABLET PO SCH ×2 (08:25→20:54)
[2021-01-04] MEDS: Metoprolol 100 MG TABLET PO SCH ×3 (08:25→20:55)
[2021-01-04] MEDS: Sennosides/Docusate Sodium TABLET PO SCH (08:26)
[2021-01-04] MEDS: Multivit/Ca/Min/Fe/FA 1 TAB TABLET PO SCH (08:26)
[2021-01-04] MEDS: Ascorbic Acid 500 MG TABLET PO SCH ×2 (08:26→16:43)
[2021-01-04] MEDS: *HR* OxyCODONE Immed Rel 5 MG TABLET PO PRN ×2 (08:31→18:04)
[2021-01-04] MEDS: lisinopriL 20 MG TABLET PO SCH (09:47)
[2021-01-04] MEDS: Nitrofurantoin (BID) 100 MG CAPSULE PO SCH ×2 (09:47→16:43)
[2021-01-04] MEDS: ALPRAZolam 0.25 MG TABLET PO PRN (09:52)
[2021-01-04] MEDS: *HR* Rivaroxaban 10 MG TABLET PO SCH (16:43)
[2021-01-04] MEDS: cloNIDine HCL 0.1 MG TABLET PO PRN (20:54)
[2021-01-04] MEDS: Gabapentin 300 MG CAPSULE PO SCH (20:55)
[2021-01-04] MEDS: Mirtazapine 15 MG TABLET PO SCH (20:55)
[2021-01-05] MEDS: *HR* OxyCODONE Immed Rel 5 MG TABLET PO PRN ×2 (03:32→21:03)
[2021-01-05] MEDS: Sennosides/Docusate Sodium TABLET PO SCH (08:37)
[2021-01-05] MEDS: Magnesium Oxide 400 MG TABLET PO SCH (08:38)
[2021-01-05] MEDS: Lactobacillus 1 EACH CAP.SPRINK PO SCH ×2 (08:38→21:02)
[2021-01-05] MEDS: Multivit/Ca/Min/Fe/FA 1 TAB TABLET PO SCH (08:38)
[2021-01-05] MEDS: lisinopriL 20 MG TABLET PO SCH (08:38)
[2021-01-05] MEDS: Nitrofurantoin (BID) 100 MG CAPSULE PO SCH ×2 (08:38→16:09)
[2021-01-05] MEDS: ALPRAZolam 0.25 MG TABLET PO PRN (08:38)
[2021-01-05] MEDS: Ascorbic Acid 500 MG TABLET PO SCH ×2 (08:38→16:09)
[2021-01-05] MEDS: Famotidine 20 MG TABLET PO SCH ×2 (08:39→21:03)
[2021-01-05] MEDS: Cyanocobalamin (B-12) 1,000 MCG TABLET PO SCH (08:39)
[2021-01-05] MEDS: *HR* OxyCODONE/APAP 5/325 TABLET PO PRN ×2 (08:39→16:09)
[2021-01-05] MEDS: Metoprolol 100 MG TABLET PO SCH ×3 (08:39→21:03)
[2021-01-05] MEDS: Ergocalciferol (VIT D2) 50,000 UNIT (1.25MG) CAP PO SCH (09:48)
[2021-01-05] MEDS: *HR* Rivaroxaban 10 MG TABLET PO SCH (16:09)
[2021-01-05] MEDS: cloNIDine HCL 0.1 MG TABLET PO PRN (21:02)
[2021-01-05] MEDS: Mirtazapine 15 MG TABLET PO SCH (21:02)
[2021-01-05] MEDS: Gabapentin 300 MG CAPSULE PO SCH (21:03)
[2021-01-06] MEDS: *HR* OxyCODONE/APAP 5/325 TABLET PO PRN ×3 (04:01→21:30)
[2021-01-06 07:08] LABS: Basophils % 0.5 %; Eosinophils # 0.5 K/mcL (0.0-0.6); Eosinophils % 6.3 %; Hematocrit 27.1 % (35.3-44.9); Hemoglobin 8.6 g/dL (11.5-15.4); Immature Granulocytes % 0.7 % (0-4); Lymphocytes % 12.8 %; Mean Corpuscular HGB Conc 31.7 g/dL (31.6-35.5); Mean Corpuscular Hemoglobin 28.4 pg (28.0-33.3); Mean Corpuscular Volume 89.4 fL (83.0-100.0); Mean Platelet Volume 10.1 fL (9.4-12.4); Monocytes # 0.9 K/mcL (0.0-1.3); Neutrophils # 5.1 K/mcL (1.6-8.9); Platelet Count 307 K/mcL (140-400); Red Blood Count 3.03 M/mcL (3.82-4.97); Red Cell Distribution Width 16.6 % (11.5-14.5); Segmented Neutrophils % 67.7 %; White Blood Count 7.5 K/mcL (4.3-11.1)
[2021-01-06] MEDS: Nitrofurantoin (BID) 100 MG CAPSULE PO SCH ×2 (07:09→17:32)
[2021-01-06] MEDS: cloNIDine HCL 0.1 MG TABLET PO PRN (07:09)
[2021-01-06] MEDS: Ascorbic Acid 500 MG TABLET PO SCH ×2 (07:09→17:32)
[2021-01-06 07:27] LABS: BUN/Creatinine Ratio 15 (6-26); Blood Urea Nitrogen 15 mg/dL (8-23); Calcium 8.3 mg/dL (8.6-10.3); Carbon Dioxide 27 mEq/L (23-29); Chloride 97 mEq/L (98-107); Glucose 102 mg/dL (70-105); Osmolality,Calculated 279 (280-300); Potassium 3.5 mEq/L (3.5-5.1); Sodium 134 mEq/L (136-145); eGFR For African Americans > 60 (> 60); eGFR For Non-African Americans 55 (> 60)
[2021-01-06] MEDS: Metoprolol 100 MG TABLET PO SCH ×3 (08:47→21:30)
[2021-01-06] MEDS: Multivit/Ca/Min/Fe/FA 1 TAB TABLET PO SCH (08:47)
[2021-01-06] MEDS: lisinopriL 20 MG TABLET PO SCH (08:47)
[2021-01-06] MEDS: Lactobacillus 1 EACH CAP.SPRINK PO SCH ×2 (08:47→21:30)
[2021-01-06] MEDS: Sennosides/Docusate Sodium TABLET PO SCH (08:47)
[2021-01-06] MEDS: cloNIDine HCL 0.1 MG TABLET PO SCH ×3 (08:47→21:30)
[2021-01-06] MEDS: Famotidine 20 MG TABLET PO SCH ×2 (08:47→21:30)
[2021-01-06] MEDS: Cyanocobalamin (B-12) 1,000 MCG TABLET PO SCH (08:48)
[2021-01-06] MEDS: Magnesium Oxide 400 MG TABLET PO SCH (08:48)
[2021-01-06] MEDS: *HR* OxyCODONE Immed Rel 5 MG TABLET PO PRN ×2 (08:48→17:31)
[2021-01-06] MEDS: *HR* Rivaroxaban 10 MG TABLET PO SCH (17:32)
[2021-01-06] MEDS: Gabapentin 300 MG CAPSULE PO SCH (21:30)
[2021-01-06] MEDS: Mirtazapine 15 MG TABLET PO SCH (21:30)
[2021-01-07] MEDS: *HR* OxyCODONE Immed Rel 5 MG TABLET PO PRN ×3 (03:36→16:18)
[2021-01-07] MEDS: *HR* OxyCODONE/APAP 5/325 TABLET PO PRN ×3 (06:06→20:29)
[2021-01-07] MEDS: Multivit/Ca/Min/Fe/FA 1 TAB TABLET PO SCH (09:52)
[2021-01-07] MEDS: lisinopriL 20 MG TABLET PO SCH (09:52)
[2021-01-07] MEDS: Nitrofurantoin (BID) 100 MG CAPSULE PO SCH ×2 (09:52→16:18)
[2021-01-07] MEDS: Famotidine 20 MG TABLET PO SCH ×2 (09:53→20:28)
[2021-01-07] MEDS: Cyanocobalamin (B-12) 1,000 MCG TABLET PO SCH (09:53)
[2021-01-07] MEDS: Ascorbic Acid 500 MG TABLET PO SCH ×2 (09:53→16:18)
[2021-01-07] MEDS: Lactobacillus 1 EACH CAP.SPRINK PO SCH ×2 (09:53→20:27)
[2021-01-07] MEDS: cloNIDine HCL 0.1 MG TABLET PO SCH ×3 (09:54→20:28)
[2021-01-07] MEDS: Metoprolol 100 MG TABLET PO SCH ×3 (09:54→20:28)
[2021-01-07] MEDS: Sennosides/Docusate Sodium TABLET PO SCH (09:54)
[2021-01-07] MEDS: Magnesium Oxide 400 MG TABLET PO SCH (09:54)
[2021-01-07] MEDS: *HR* Rivaroxaban 10 MG TABLET PO SCH (16:18)
[2021-01-07] MEDS: Gabapentin 300 MG CAPSULE PO SCH (20:27)
[2021-01-07] MEDS: Mirtazapine 15 MG TABLET PO SCH (20:28)
[2021-01-08] MEDS ORDERED: *HR* OxyCODONE/APAP 5/325 TABLET PO ONE (05:32)
[2021-01-08] MEDS ORDERED: ALPRAZolam 0.25 MG TABLET PO SCH (09:00)
[2021-01-08] MEDS: Lactobacillus 1 EACH CAP.SPRINK PO SCH ×2 (09:02→20:44)
[2021-01-08] MEDS: Metoprolol 100 MG TABLET PO SCH ×3 (09:03→20:45)
[2021-01-08] MEDS: lisinopriL 20 MG TABLET PO SCH (09:03)
[2021-01-08] MEDS: *HR* OxyCODONE Immed Rel 5 MG TABLET PO PRN ×2 (09:03→16:24)
[2021-01-08] MEDS: Sennosides/Docusate Sodium TABLET PO SCH (09:04)
[2021-01-08] MEDS: Nitrofurantoin (BID) 100 MG CAPSULE PO SCH ×2 (09:04→16:24)
[2021-01-08] MEDS: Magnesium Oxide 400 MG TABLET PO SCH (09:04)
[2021-01-08] MEDS: Cyanocobalamin (B-12) 1,000 MCG TABLET PO SCH (09:04)
[2021-01-08] MEDS: Ascorbic Acid 500 MG TABLET PO SCH ×2 (09:04→16:24)
[2021-01-08] MEDS: cloNIDine HCL 0.1 MG TABLET PO SCH ×3 (09:04→20:45)
[2021-01-08] MEDS: Famotidine 20 MG TABLET PO SCH ×2 (09:05→20:46)
[2021-01-08] MEDS: Multivit/Ca/Min/Fe/FA 1 TAB TABLET PO SCH (09:05)
[2021-01-08] MEDS: *HR* OxyCODONE/APAP 5/325 TABLET PO PRN ×2 (12:10→20:44)
[2021-01-08] MEDS: *HR* Rivaroxaban 10 MG TABLET PO SCH (16:24)
[2021-01-08] MEDS: ALPRAZolam 0.25 MG TABLET PO PRN (20:44)
[2021-01-08] MEDS: Gabapentin 300 MG CAPSULE PO SCH (20:45)
[2021-01-08] MEDS: Mirtazapine 15 MG TABLET PO SCH (20:45)
[2021-01-09] MEDS ORDERED: hydrALAZINE 10 MG TABLET PO ONE (03:54)
[2021-01-09] MEDS: Acetaminophen 325 MG TABLET PO PRN (04:49)
[2021-01-09] MEDS: Magnesium Oxide 400 MG TABLET PO SCH (08:30)
[2021-01-09] MEDS: Cyanocobalamin (B-12) 1,000 MCG TABLET PO SCH (08:30)
[2021-01-09] MEDS: Sennosides/Docusate Sodium TABLET PO SCH (08:30)
[2021-01-09] MEDS: Lactobacillus 1 EACH CAP.SPRINK PO SCH ×2 (08:30→20:50)
[2021-01-09] MEDS: Multivit/Ca/Min/Fe/FA 1 TAB TABLET PO SCH (08:30)
[2021-01-09] MEDS: Metoprolol 100 MG TABLET PO SCH ×3 (08:31→20:51)
[2021-01-09] MEDS: Famotidine 20 MG TABLET PO SCH ×2 (08:31→20:51)
[2021-01-09] MEDS: *HR* OxyCODONE/APAP 5/325 TABLET PO PRN ×2 (08:31→16:16)
[2021-01-09] MEDS: Nitrofurantoin (BID) 100 MG CAPSULE PO SCH ×2 (08:31→16:16)
[2021-01-09] MEDS: Ascorbic Acid 500 MG TABLET PO SCH ×2 (08:32→16:16)
[2021-01-09] MEDS: lisinopriL 20 MG TABLET PO SCH (08:32)
[2021-01-09] MEDS: cloNIDine HCL 0.1 MG TABLET PO SCH ×3 (08:32→20:51)
[2021-01-09] MEDS: *HR* OxyCODONE Immed Rel 5 MG TABLET PO PRN ×2 (13:10→20:51)
[2021-01-09] MEDS: *HR* Rivaroxaban 10 MG TABLET PO SCH (16:17)
[2021-01-09] MEDS: Mirtazapine 15 MG TABLET PO SCH (20:50)
[2021-01-09] MEDS: Gabapentin 300 MG CAPSULE PO SCH (20:51)
[2021-01-09] MEDS: amLODIPine 5 MG TABLET PO SCH (21:00)
[2021-01-10] MEDS: *HR* OxyCODONE/APAP 5/325 TABLET PO PRN ×3 (04:09→18:48)
[2021-01-10] MEDS: *HR* OxyCODONE Immed Rel 5 MG TABLET PO PRN ×2 (09:33→16:34)
[2021-01-10] MEDS: Metoprolol 100 MG TABLET PO SCH ×3 (09:33→20:01)
[2021-01-10] MEDS: Cyanocobalamin (B-12) 1,000 MCG TABLET PO SCH (09:33)
[2021-01-10] MEDS: Nitrofurantoin (BID) 100 MG CAPSULE PO SCH ×2 (09:33→16:22)
[2021-01-10] MEDS: Ascorbic Acid 500 MG TABLET PO SCH ×2 (09:33→16:22)
[2021-01-10] MEDS: cloNIDine HCL 0.1 MG TABLET PO SCH ×3 (09:34→20:01)
[2021-01-10] MEDS: Famotidine 20 MG TABLET PO SCH ×2 (09:34→20:01)
[2021-01-10] MEDS: amLODIPine 5 MG TABLET PO SCH (09:34)
[2021-01-10] MEDS: Multivit/Ca/Min/Fe/FA 1 TAB TABLET PO SCH (09:34)
[2021-01-10] MEDS: Magnesium Oxide 400 MG TABLET PO SCH (09:34)
[2021-01-10] MEDS: lisinopriL 20 MG TABLET PO SCH (09:35)
[2021-01-10] MEDS: Sennosides/Docusate Sodium TABLET PO SCH (09:35)
[2021-01-10] MEDS: Lactobacillus 1 EACH CAP.SPRINK PO SCH ×2 (09:35→20:01)
[2021-01-10] MEDS: Acetaminophen 325 MG TABLET PO PRN (14:06)
[2021-01-10] MEDS: *HR* Rivaroxaban 10 MG TABLET PO SCH (16:23)
[2021-01-10] MEDS: Mirtazapine 15 MG TABLET PO SCH (20:01)
[2021-01-10] MEDS: Gabapentin 300 MG CAPSULE PO SCH (20:01)
[2021-01-11] MEDS: *HR* OxyCODONE/APAP 5/325 TABLET PO PRN ×4 (02:42→22:56)
[2021-01-11] MEDS: *HR* OxyCODONE Immed Rel 5 MG TABLET PO PRN ×2 (06:28→14:41)
[2021-01-11] MEDS: cloNIDine HCL 0.1 MG TABLET PO SCH ×3 (09:20→21:09)
[2021-01-11] MEDS: Multivit/Ca/Min/Fe/FA 1 TAB TABLET PO SCH (09:20)
[2021-01-11] MEDS: Magnesium Oxide 400 MG TABLET PO SCH (09:20)
[2021-01-11] MEDS: amLODIPine 5 MG TABLET PO SCH (09:20)
[2021-01-11] MEDS: Metoprolol 100 MG TABLET PO SCH ×3 (09:20→21:10)
[2021-01-11] MEDS: ALPRAZolam 0.25 MG TABLET PO PRN ×2 (09:20→21:10)
[2021-01-11] MEDS: Lactobacillus 1 EACH CAP.SPRINK PO SCH ×2 (09:20→21:10)
[2021-01-11] MEDS: Ascorbic Acid 500 MG TABLET PO SCH ×2 (09:20→15:48)
[2021-01-11] MEDS: lisinopriL 20 MG TABLET PO SCH (09:21)
[2021-01-11] MEDS: Sennosides/Docusate Sodium TABLET PO SCH (09:21)
[2021-01-11] MEDS: Famotidine 20 MG TABLET PO SCH ×2 (09:21→21:10)
[2021-01-11] MEDS: Cyanocobalamin (B-12) 1,000 MCG TABLET PO SCH (09:22)
[2021-01-11] MEDS ORDERED: Nystatin POWDER 30 GM BOTTLE TP PRN (14:38)
[2021-01-11] MEDS: *HR* Rivaroxaban 10 MG TABLET PO SCH (15:47)
[2021-01-11] MEDS: Gabapentin 300 MG CAPSULE PO SCH (21:09)
[2021-01-11] MEDS: Mirtazapine 15 MG TABLET PO SCH (21:10)
[2021-01-12] MEDS: *HR* OxyCODONE Immed Rel 5 MG TABLET PO PRN (03:35)
[2021-01-12] MEDS: *HR* OxyCODONE/APAP 5/325 TABLET PO PRN ×3 (09:07→22:35)
[2021-01-12] MEDS: Lactobacillus 1 EACH CAP.SPRINK PO SCH ×2 (09:07→22:34)
[2021-01-12] MEDS: cloNIDine HCL 0.1 MG TABLET PO SCH ×3 (09:07→22:35)
[2021-01-12] MEDS: Famotidine 20 MG TABLET PO SCH ×2 (09:07→22:35)
[2021-01-12] MEDS: Multivit/Ca/Min/Fe/FA 1 TAB TABLET PO SCH (09:07)
[2021-01-12] MEDS: Metoprolol 100 MG TABLET PO SCH ×3 (09:07→22:35)
[2021-01-12] MEDS: Magnesium Oxide 400 MG TABLET PO SCH (09:08)
[2021-01-12] MEDS: amLODIPine 5 MG TABLET PO SCH (09:08)
[2021-01-12] MEDS: Ascorbic Acid 500 MG TABLET PO SCH ×2 (09:08→15:13)
[2021-01-12] MEDS: Sennosides/Docusate Sodium TABLET PO SCH (09:08)
[2021-01-12] MEDS: lisinopriL 20 MG TABLET PO SCH (09:08)
[2021-01-12] MEDS: Cyanocobalamin (B-12) 1,000 MCG TABLET PO SCH (09:08)
[2021-01-12] MEDS: Ergocalciferol (VIT D2) 50,000 UNIT (1.25MG) CAP PO SCH (15:17)
[2021-01-12] MEDS: Mirtazapine 15 MG TABLET PO SCH (22:36)
[2021-01-12] MEDS: Gabapentin 300 MG CAPSULE PO SCH (22:36)
[2021-01-12] MEDS: ALPRAZolam 0.25 MG TABLET PO PRN (22:36)
[2021-01-13] MEDS: *HR* OxyCODONE Immed Rel 5 MG TABLET PO PRN ×3 (02:01→18:37)
[2021-01-13] MEDS: Acetaminophen 325 MG TABLET PO PRN (05:07)
[2021-01-13 07:46] LABS: Basophils # 0.1 K/mcL (0.0-0.2); Basophils % 0.7 %; Eosinophils # 0.5 K/mcL (0.0-0.6); Eosinophils % 6.5 %; Hematocrit 29.9 % (35.3-44.9); Hemoglobin 9.3 g/dL (11.5-15.4); Immature Granulocytes % 0.6 % (0-4); Lymphocytes # 1.6 K/mcL (0.6-4.6); Lymphocytes % 22.1 %; Mean Corpuscular HGB Conc 31.1 g/dL (31.6-35.5); Mean Corpuscular Hemoglobin 28.4 pg (28.0-33.3); Mean Corpuscular Volume 91.4 fL (83.0-100.0); Mean Platelet Volume 10.7 fL (9.4-12.4); Monocytes # 0.7 K/mcL (0.0-1.3); Monocytes % 10.2 %; Neutrophils # 4.3 K/mcL (1.6-8.9); Platelet Count 304 K/mcL (140-400); Red Blood Count 3.27 M/mcL (3.82-4.97); Red Cell Distribution Width 17.7 % (11.5-14.5); Segmented Neutrophils % 59.9 %; White Blood Count 7.2 K/mcL (4.3-11.1)
[2021-01-13 07:55] LABS: INR 1.1; Prothrombin Time 12.5 Seconds (9.4-12.1)
[2021-01-13 08:03] LABS: BUN/Creatinine Ratio 17 (6-26); Blood Urea Nitrogen 17 mg/dL (8-23); Calcium 8.7 mg/dL (8.6-10.3); Carbon Dioxide 27 mEq/L (23-29); Chloride 100 mEq/L (98-107); Glucose 98 mg/dL (70-105); Osmolality,Calculated 282 (280-300); Potassium 4.1 mEq/L (3.5-5.1); Sodium 135 mEq/L (136-145); eGFR For African Americans > 60 (> 60); eGFR For Non-African Americans 53 (> 60)
[2021-01-13] MEDS: Sennosides/Docusate Sodium TABLET PO SCH (08:20)
[2021-01-13] MEDS: Cyanocobalamin (B-12) 1,000 MCG TABLET PO SCH (08:20)
[2021-01-13] MEDS: Ondansetron ODT 4 MG TAB.RAPDIS SL PRN (08:20)
[2021-01-13] MEDS: lisinopriL 20 MG TABLET PO SCH (08:20)
[2021-01-13] MEDS: Ascorbic Acid 500 MG TABLET PO SCH ×2 (08:20→18:38)
[2021-01-13] MEDS: Magnesium Oxide 400 MG TABLET PO SCH (08:21)
[2021-01-13] MEDS: Multivit/Ca/Min/Fe/FA 1 TAB TABLET PO SCH (08:21)
[2021-01-13] MEDS: cloNIDine HCL 0.1 MG TABLET PO SCH ×3 (08:21→23:26)
[2021-01-13] MEDS: *HR* OxyCODONE/APAP 5/325 TABLET PO PRN ×3 (08:21→23:26)
[2021-01-13] MEDS: Metoprolol 100 MG TABLET PO SCH ×3 (08:22→23:26)
[2021-01-13] MEDS: Famotidine 20 MG TABLET PO SCH ×2 (08:22→23:24)
[2021-01-13] MEDS: Lactobacillus 1 EACH CAP.SPRINK PO SCH ×2 (08:22→23:24)
[2021-01-13] MEDS: amLODIPine 5 MG TABLET PO SCH (08:22)
[2021-01-13] MEDS: Mirtazapine 15 MG TABLET PO SCH (23:25)
[2021-01-13] MEDS: ALPRAZolam 0.25 MG TABLET PO PRN (23:25)
[2021-01-13] MEDS: Gabapentin 300 MG CAPSULE PO SCH (23:26)
[2021-01-14] MEDS: *HR* OxyCODONE/APAP 5/325 TABLET PO PRN ×3 (06:55→21:36)
[2021-01-14] MEDS: Ascorbic Acid 500 MG TABLET PO SCH ×2 (09:26→15:53)
[2021-01-14] MEDS: *HR* OxyCODONE Immed Rel 5 MG TABLET PO PRN (09:26)
[2021-01-14] MEDS: Metoprolol 100 MG TABLET PO SCH ×3 (09:26→21:37)
[2021-01-14] MEDS: lisinopriL 20 MG TABLET PO SCH (09:27)
[2021-01-14] MEDS: Magnesium Oxide 400 MG TABLET PO SCH (09:27)
[2021-01-14] MEDS: Multivit/Ca/Min/Fe/FA 1 TAB TABLET PO SCH (09:27)
[2021-01-14] MEDS: Sennosides/Docusate Sodium TABLET PO SCH (09:27)
[2021-01-14] MEDS: Cyanocobalamin (B-12) 1,000 MCG TABLET PO SCH (09:27)
[2021-01-14] MEDS: amLODIPine 5 MG TABLET PO SCH (09:27)
[2021-01-14] MEDS: Lactobacillus 1 EACH CAP.SPRINK PO SCH ×2 (09:27→21:36)
[2021-01-14] MEDS: Famotidine 20 MG TABLET PO SCH ×2 (09:27→21:36)
[2021-01-14] MEDS: cloNIDine HCL 0.1 MG TABLET PO SCH ×3 (09:27→21:35)
[2021-01-14] MEDS: ALPRAZolam 0.25 MG TABLET PO PRN (21:35)
[2021-01-14] MEDS: Gabapentin 300 MG CAPSULE PO SCH (21:35)
[2021-01-14] MEDS: Mirtazapine 15 MG TABLET PO SCH (21:36)
[2021-01-15] MEDS: *HR* OxyCODONE/APAP 5/325 TABLET PO PRN ×3 (06:11→19:46)
[2021-01-15] MEDS: *HR* OxyCODONE Immed Rel 5 MG TABLET PO PRN ×2 (07:41→15:21)
[2021-01-15] MEDS: Magnesium Oxide 400 MG TABLET PO SCH (07:41)
[2021-01-15] MEDS: lisinopriL 20 MG TABLET PO SCH (07:42)
[2021-01-15] MEDS: amLODIPine 5 MG TABLET PO SCH (07:42)
[2021-01-15] MEDS: cloNIDine HCL 0.1 MG TABLET PO SCH ×3 (07:42→19:44)
[2021-01-15] MEDS: Ascorbic Acid 500 MG TABLET PO SCH ×2 (07:42→15:21)
[2021-01-15] MEDS: Multivit/Ca/Min/Fe/FA 1 TAB TABLET PO SCH (07:42)
[2021-01-15] MEDS: Lactobacillus 1 EACH CAP.SPRINK PO SCH ×2 (07:42→19:44)
[2021-01-15] MEDS: Sennosides/Docusate Sodium TABLET PO SCH (07:42)
[2021-01-15] MEDS: Ondansetron ODT 4 MG TAB.RAPDIS SL PRN ×2 (07:42→19:46)
[2021-01-15] MEDS: Cyanocobalamin (B-12) 1,000 MCG TABLET PO SCH (07:43)
[2021-01-15] MEDS: Famotidine 20 MG TABLET PO SCH (07:43)
[2021-01-15] MEDS: Metoprolol 100 MG TABLET PO SCH ×3 (07:43→19:45)
[2021-01-15] MEDS ORDERED: Simethicone 80 MG TAB.CHEW PO PRN (19:12)
[2021-01-15] MEDS: ALPRAZolam 0.25 MG TABLET PO PRN (19:44)
[2021-01-15] MEDS: Gabapentin 300 MG CAPSULE PO SCH (19:44)
[2021-01-15] MEDS: Mirtazapine 15 MG TABLET PO SCH (19:44)
[2021-01-16] MEDS: *HR* OxyCODONE/APAP 5/325 TABLET PO PRN (02:46)
[2021-01-16 07:46] VITALS: RESP 20; TEMP 98.6
[2021-01-16] MEDS: Lactobacillus 1 EACH CAP.SPRINK PO SCH (07:56)
[2021-01-16] MEDS: Cyanocobalamin (B-12) 1,000 MCG TABLET PO SCH (07:58)
[2021-01-16] MEDS: Magnesium Oxide 400 MG TABLET PO SCH (07:58)
[2021-01-16] MEDS: Ascorbic Acid 500 MG TABLET PO SCH ×2 (07:58→16:29)
[2021-01-16] MEDS: Sennosides/Docusate Sodium TABLET PO SCH (08:00)
[2021-01-16] MEDS: lisinopriL 20 MG TABLET PO SCH (08:00)
[2021-01-16] MEDS: Metoprolol 100 MG TABLET PO SCH ×2 (08:00→16:29)
[2021-01-16] MEDS: Multivit/Ca/Min/Fe/FA 1 TAB TABLET PO SCH (08:00)
[2021-01-16] MEDS: cloNIDine HCL 0.1 MG TABLET PO SCH ×2 (08:00→16:29)
[2021-01-16] MEDS: amLODIPine 5 MG TABLET PO SCH (08:01)
[2021-01-16] MEDS: *HR* OxyCODONE Immed Rel 5 MG TABLET PO PRN ×2 (08:05→16:29)
[2021-01-16] MEDS ORDERED: Famotidine 20 MG TABLET PO SCH (09:00)
[2021-01-16 09:41] VITALS: BP 144/89; PULSE 78; O2SAT 95
== END 2021-01-16 17:04 | disposition home health service (06) | DRG 945 ==
LOC: INPPIK 21:00
PROVIDERS: ADMIT Family Medicine; ATTEND Family Medicine